=== PATIENT | female | born 1975 | race African-American/Black ===

== ENCOUNTER 2016-07-12 12:34 | Emergency (ER) | payer SELFPAY ==
[~2016-07-12] VITALS: Ht 167.6 cm; Wt 90.7 kg
[2016-07-12 14:35] LABS: BASOPHILS % (AUTO) 0 % (0-10); EOSINOPHILS # (AUTO) 0.2 10^3/uL (0.0-0.3); EOSINOPHILS % (AUTO) 2 % (0-10); LYMPHOCYTES # (AUTO) 2.3 X 10^3 (1.0-4.0); LYMPHOCYTES % (AUTO) 31 % (12-44); MEAN CORPUSCULAR HEMOGLOBIN 29 PG (25-34); MEAN CORPUSCULAR HGB CONC 33 G/DL (32-36); MEAN CORPUSCULAR VOLUME 89 FL (80-99); MEAN PLATELET VOLUME 11.3 FL (7.4-10.4); MONOCYTES # (AUTO) 0.5 X 10^3 (0.0-1.0); MONOCYTES % (AUTO) 6 % (0-12); NEUTROPHILS # (AUTO) 4.6 X 10^3 (1.8-7.8); NEUTROPHILS % (AUTO) 61 % (42-75); PLATELET COUNT 257 10^3/uL (130-400); RED BLOOD COUNT 4.59 10^6/uL (4.35-5.85); RED CELL DISTRIBUTION WIDTH 13.3 % (10.0-14.5); WHITE BLOOD COUNT 7.6 10^3/uL (4.3-11.0)
[2016-07-12 14:56] LABS: ALANINE AMINOTRANSFERASE 18 U/L (0-55); ALBUMIN 4.4 G/DL (3.2-4.5); ANION GAP 9 MMOL/L (5-14); ASPARTATE AMINO TRANSFERASE 27 U/L (5-34); BILIRUBIN,TOTAL 0.5 MG/DL (0.1-1.0); BLOOD UREA NITROGEN 7 MG/DL (7-18); BUN/CREATININE RATIO 9; CALCIUM 9.4 MG/DL (8.5-10.1); CARBON DIOXIDE 23 MMOL/L (21-32); CHLORIDE 108 MMOL/L (98-107); CREATININE SERUM 0.82 MG/DL (0.60-1.30); GFR ESTIMATED > 60; GLUCOSE 93 MG/DL (70-105); POTASSIUM 3.5 MMOL/L (3.6-5.0); SALICYLATE < 5.0 MG/DL (5.0-20.0); SODIUM 140 MMOL/L (135-145); TOTAL PROTEIN 7.4 G/DL (6.4-8.2)
[2016-07-12 15:07] LABS: ACETAMINOPHEN < 10 UG/ML (10-30); ALCOHOL < 10 MG/DL (<10)
--- NOTE | 2016-07-12 15:36 | ED Psychosocial ---
General Chief Complaint: Psych/Social Disorder Stated Complaint: CONFUSED/NOT TAKING MEDS PSYCH EVAL Nursing Triage Note: PT OUT IN LOBBY, SCREAMING AND PPD CALLED BY SOCIAL WORKERS IN [facility] W PT. PT HAS BEEN ACTING OUT AT HOME, STATES TO SOCIAL WORK STAFF THAT SHE WILL BEAT UP PEOPLE IN LOBBY, PT IS HEARING AND RESPONDING TO VOICES, PT UNABLE TO TELL STAFF DATE OR WHERE CHILDREN ARE, STATES HAS NOT TAKEN MEDS FOR A LONG TIME. PT LIVES ALONE. JAYJAY CRAWFORD WAS SUPPOSE TO SEE PT AT HOME TODAY BUT WHEN HE WENT SHE WAS NOT AT HOME Source: patient Exam Limitations: no limitations History of Present Illness Time seen by provider: 15:36 Initial Comments 40-year-old female patient presents to the emergency department with social workers due to altered mental status, hallucinations, delusions, and patient threatening others. PPD contacted while in the lobby by the [facility] social workers due to patient threatening other patients in the waiting room. Per DCF patient had not been taking her psych medications for an unknown amount of time. Patient exhibits very odd behavior during the visit. Refuses to answer questions pertaining to situation. Denies suicidal ideation. Does report voices telling her to harm the people in the lobby. A bag of pills brought to the ED with the patient. Severity: severe Allergies and Home Medications Allergies Coded Allergies: No Known Drug Allergies (Verified , 04/06/07) Home Medications No Active Prescriptions or Reported Meds Constitutional: No chills, No dizziness, No fever, No malaise EENTM: no symptoms reported Respiratory: No cough, No short of breath Cardiovascular: No chest pain, No edema, No palpitations, No syncope Gastrointestinal: No abdominal pain, No constipation, No diarrhea, No nausea, No vomiting Genitourinary: no symptoms reported Musculoskeletal: no symptoms reported Skin: no symptoms reported Psychiatric/Neurological: See HPI, Emotional Problems, Denies Headache, Denies Numbness, Denies Paresthesia, Denies Seizure, Denies Tingling, Denies Weakness All Other Systems Reviewed Negative Unless Noted: Yes (Negative excepted noted.) Past Rlgdvgq-Oshijc-Rhjdne Hx Patient Social History Alcohol Use: Denies Use Recreational Drug Use: No Smoking Status: Never a Smoker Recent Foreign Travel: No Contact w/Someone Who Travel: No Recent Infectious Disease Expo: No Recent Hopitalizations: Yes ( OF CHILD 04/17/07 ) Immunizations Up To Date Date of Influenza Vaccine: Dec 10, 2014 Seasonal Allergies Seasonal Allergies: No Surgeries HX Surgeries: Yes (D/C 04/28/07 ) Respiratory Hx Respiratory Disorders: No Cardiovascular Hx Cardiac Disorders: No Neurological Hx Neurological Disorders: No Reproductive System Hx Reproductive Disorders: No Genitourinary Hx Genitourinary Disorders: No Gastrointestinal Hx Gastrointestinal Disorders: No Musculoskeletal Hx Musculoskeletal Disorders: No Endocrine Hx Endocrine Disorders: No HEENT HX ENT Disorders: No Cancer Hx Cancer: No Psychosocial Hx Psychiatric Problems: Yes (unknown exact diagnoses) Blood Transfusions Hx Blood Disorders: No Reviewed Nursing Assessment Reviewed/Agree w Nursing PMH: Yes Family Medical History Significant Family History: Psychiatric Problems Physical Exam Vital Signs Vital Sign - Last 12Hours 07/12/16 13:30 Temp 97.9 Pulse 81 Resp 20 B/P (MAP) 144/80 Pulse Ox 98 Capillary Refill : Less Than 3 Seconds General Appearance: WD/WN, no apparent distress, other (has difficulty sitting still. flight of ideas. difficult to keep focused. 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 does not recall the situation that brought her to the ED. flat affect noted.) Appearance/Memory: denies illness, disheveled, impaired insight, impaired recent memory Behavior/Eye Contact: avoids eye contact, refused to answer (refuses to answer certain questions.), increased rate of speech, belligerent (patient is heard from the nurses desk and my office to scream out obscenities.), compulsive Thoughts/Hallucinations: auditory hallucinations, delusions, flight of ideas, obsessive, tactile hallucinations, visual hallucinations Skin: normal color, warm/dry Progress/Results/Core Measures Results/Orders Lab Results Laboratory Tests Test 07/12/16 14:22 07/12/16 15:23 Range/Units White Blood Count 7.6 4.3-11.0 10^3/uL Red Blood Count 4.59 4.35-5.85 10^6/uL Hemoglobin 13.5 11.5-16.0 G/DL Hematocrit 41 35-52 % Mean Corpuscular Volume 89 80-99 FL Mean Corpuscular Hemoglobin 29 25-34 PG Mean Corpuscular Hemoglobin Concent 33 32-36 G/DL Red Cell Distribution Width 13.3 10.0-14.5 % Platelet Count 257 130-400 10^3/uL Mean Platelet Volume 11.3 H 7.4-10.4 FL Neutrophils (%) (Auto) 61 42-75 % Lymphocytes (%) (Auto) 31 12-44 % Monocytes (%) (Auto) 6 0-12 % Eosinophils (%) (Auto) 2 0-10 % Basophils (%) (Auto) 0 0-10 % Neutrophils # (Auto) 4.6 1.8-7.8 X 10^3 Lymphocytes # (Auto) 2.3 1.0-4.0 X 10^3 Monocytes # (Auto) 0.5 0.0-1.0 X 10^3 Eosinophils # (Auto) 0.2 0.0-0.3 10^3/uL Basophils # (Auto) 0.0 0.0-0.1 10^3/uL Sodium Level 140 135-145 MMOL/L Potassium Level 3.5 L 3.6-5.0 MMOL/L Chloride Level 108 H 98-107 MMOL/L Carbon Dioxide Level 23 21-32 MMOL/L Anion Gap 9 5-14 MMOL/L Blood Urea Nitrogen 7 7-18 MG/DL Creatinine 0.82 0.60-1.30 MG/DL Estimat Glomerular Filtration Rate > 60 BUN/Creatinine Ratio 9 Glucose Level 93 70-105 MG/DL Calcium Level 9.4 8.5-10.1 MG/DL Total Bilirubin 0.5 0.1-1.0 MG/DL Aspartate Amino Transf (AST/SGOT) 27 5-34 U/L Alanine Aminotransferase (ALT/SGPT) 18 0-55 U/L Alkaline Phosphatase 58 40-136 U/L Total Protein 7.4 6.4-8.2 G/DL Albumin 4.4 3.2-4.5 G/DL TSH [place] Testing 0.85 0.35-4.94 UIU/ML Salicylates Level < 5.0 L 5.0-20.0 MG/DL Acetaminophen Level < 10 L 10-30 UG/ML Serum Alcohol < 10 <10 MG/DL Urine Color YELLOW Urine Clarity VERY CLOUDY H Urine pH 5 5-9 Urine Specific [place] 1.025 H 1.016-1.022 Urine Protein 1+ H NEGATIVE Urine Glucose (UA) NEGATIVE NEGATIVE Urine Ketones NEGATIVE NEGATIVE Urine Nitrite NEGATIVE NEGATIVE Urine Bilirubin NEGATIVE NEGATIVE Urine Urobilinogen NORMAL NORMAL MG/DL Urine Leukocyte Esterase 1+ H NEGATIVE Urine RBC (Auto) 2+ H NEGATIVE Urine RBC 2-5 H /HPF Urine WBC 2-5 /HPF Urine Squamous Epithelial Cells >50 H /HPF Urine Crystals NONE /LPF Urine Bacteria FEW H /HPF Urine Casts NONE /LPF Urine Mucus SMALL H /LPF Urine Culture Indicated NO Urine Test NEGATIVE NEGATIVE Urine Opiates Screen NEGATIVE NEGATIVE Urine Oxycodone Screen NEGATIVE NEGATIVE Urine Methadone Screen NEGATIVE NEGATIVE Urine Propoxyphene Screen NEGATIVE NEGATIVE Urine Barbiturates Screen NEGATIVE NEGATIVE Ur Tricyclic Antidepressants Screen NEGATIVE NEGATIVE Urine Phencyclidine Screen NEGATIVE NEGATIVE Urine Amphetamines Screen NEGATIVE NEGATIVE Urine Methamphetamines Screen NEGATIVE NEGATIVE Urine Benzodiazepines Screen NEGATIVE NEGATIVE Urine Cocaine Screen NEGATIVE NEGATIVE Urine Cannabinoids Screen POSITIVE H NEGATIVE My Orders Orders - ELADIA ECHEVARRIA PA Ua Culture If Indicated (07/12/16 14:08) Cbc With Automated Diff (07/12/16 14:08) Comprehensive Metabolic Panel (07/12/16 14:08) Alcohol (07/12/16 14:08) Drug Screen Stat (Urine) (07/12/16 14:08) Acetaminophen (07/12/16 14:08) Salicylate (07/12/16 14:08) Ekg Tracing (07/12/16 14:08) Hcg,Qualitative Urine (07/12/16 14:08) Thyroid Analyzer (07/12/16 14:08) [place] Level (07/12/16 20:12) Vital Signs/I&O Vital Sign - Last 12Hours 07/12/16 13:30 Temp 97.9 Pulse 81 Resp 20 B/P (MAP) 144/80 Pulse Ox 98 Blood Pressure Mean: 101 ECG Initial ECG Impression Date: July 12, 2016 Initial ECG Impression Time: 15:03 Initial ECG Rate: 66 Initial ECG Rhythm: Normal Sinus Initial ECG Intervals: Normal Initial ECG Impression: Normal Initial ECG Comparisson: No Previous ECG Available Comment Sinus rhythm. No STEMI or arrhythmia noted. ECG reviewed and discussed with Dr. Moreno Departure Communication Progress Notes Patient seen and evaluated. Bag of medications shows a large Ziploc bag with 5 different types of medication. Several of the pills are In half. No labels or pill bottles are noted. Several pillboxes noted in the bag as well containing medications. Several pillboxes show candy crosses and round jellybean- appearing candies mixed with medications similar medications found in the Ziploc bag. Patient refuses to divulge with the pills are. Pill identifier used to identify medications . Medications found to be consistent with lithium 300 mg, sertraline 25 mg, Seroquel 300 mg, Seroquel 200 mg, and diphenhydramine. A pill box from December 2015 and April 2016 found in the bag. An eviction notice addressed to the patient found in the bag. Eviction notice was delivered on 07/12/16. [id number] patient case discussed with Jayjay crawford from [facility]. States Oliveira will be out to screen the patient around 5 p.m. [id number] screener in the room with the patient. Will await the completion of the psych eval. [id number] Roxanne, from [facility], contacting facilities for inpatient placement. Patient resting comfortably. 2013 Patient found not to be in the exam room. ED staff not notified of patient leaving the facility. Screener unaware of patient leaving. PPD contacted by ED staff due to patient being a threat to herself and others. Dr. Sauer notified of patient leaving AMA. Impression Impression: Primary Impression: Psychosis Qualified Codes: F20.9 - Schizophrenia, unspecified Additional Impression: Noncompliance with medications Disposition: 07 AGAINST MEDICAL ADVICE Condition: Against Medical Advice Departure-Patient Inst. Referrals: [facility] (PCP/Family) Primary Care Physician Scripts No Active Prescriptions or Reported Meds ELADIA ECHEVARRIA July 12, 2016 15:36
[2016-07-12 16:12] LABS: BILIRUBIN,URINE NEGATIVE (NEGATIVE); KETONES,URINE NEGATIVE (NEGATIVE); LEUKOCYTE ESTERASE ,URINE 1+ (NEGATIVE); NITRITE,URINE NEGATIVE (NEGATIVE); PH,URINE 5 (5-9); PROTEIN,URINE 1+ (NEGATIVE); UROBILINOGEN,URINE NORMAL (NORMAL)
[2016-07-12 16:22] LABS: SQUAMOUS EPITHELIAL CELL,UR >50 /HPF
[2016-07-12 20:14] VITALS: BP 144/80
== END 2016-07-12 20:14 | disposition left against medical advice (07) ==
LOC: EDUNIT# 12:34 → ER 12:38
DX: F29 Unspecified psychosis not due to a substance or known physiological condition (principal); F20.9 Schizophrenia, unspecified; R44.0 Auditory hallucinations; R44.2 Other hallucinations; Z91.14 Patient's other noncompliance with medication regimen
CPT/HCPCS: 36415; 80053; 80178; 80306; 80320; 80329; 81000; 84443; 84703; 85025; 93005

== ENCOUNTER 2020-01-24 10:38 | Emergency (ER) | payer SELFPAY ==
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
--- NOTE | 2020-01-24 11:37 | NUR ---
was assisting visitors when pt was seen in the ER with another woman. Recognized the pt as a former employee of [employer]. Pt demonstrated she was upset, and pug mill operator calmly approached her. The pt put her hands up and said, "I don't know what to tell you, you just got to get out of here. Just get out. You don't want to be here." gave the pt her space and observed her yelling angrily at the woman with her. Then observed security physically separate the pt from the woman with her.
== END 2020-01-24 11:49 | disposition left against medical advice (07) ==
LOC: EDUNIT# 10:38 → ER 10:39
DX: Z00.00 Encounter for general adult medical examination without abnormal findings (principal)

== ENCOUNTER → 2020-05-19 | Outpatient (CLI) | payer OTHER ==
--- NOTE | 2020-05-19 10:10 | Diagnostic Imaging Report ---
INDICATION: Routine screening. COMPARISON: No prior mammograms are available for comparison. This is a baseline study. TECHNIQUE: 2D and 3D bilateral screening mammography was performed with CAD. FINDINGS: Both breasts are heterogeneously dense, limiting the sensitivity of mammography. No mass or malignant appearing microcalcifications are seen. There are benign calcifications of the right breast. The axillae are unremarkable. IMPRESSION: No mammographic features suspicious for malignancy are identified. ACR BI-RADS Category 2: Benign findings. Result letter will be mailed to the patient. Note: At least 10% of breast cancer is not imaged by mammography. Dictated by: Dictated on workstation # [id number]
== END ==
LOC: RAD 09:03
PROVIDERS: ATTEND Nurse Practitioner
DX: Z12.31 Encounter for screening mammogram for malignant neoplasm of breast (principal)
CPT/HCPCS: 77063; 77067